=== PATIENT | female | born 1980 | race Two or more races ===

== ENCOUNTER 2021-07-16 10:52 | Emergency (ER) | payer SELFPAY ==
[~2021-07-16] VITALS: Ht 165.1 cm; Wt 72.0 kg
[2021-07-16 12:19] LABS: BASO % 0 % (0-3); EOS # 0.2 x10^3/uL (0.0-0.7); EOS % 3 % (0-3); HEMATOCRIT 43.9 % (36.0-47.0); HEMOGLOBIN 14.9 g/dL (12.0-15.5); LYMPH # 1.9 x10^3/uL (1.0-4.8); LYMPH % 24 % (24-48); MEAN CORPUSCULAR HEMOGLOBIN 29 pg (25-35); MEAN CORPUSCULAR HGB CONC 34 g/dL (31-37); MEAN CORPUSCULAR VOLUME 86 fL (79-100); MONO # 0.5 x10^3/uL (0.0-1.1); MONO % 7 % (0-9); NEUT # 5.3 x10^3/uL (1.8-7.7); NEUT % 66 % (31-73); PLATELET COUNT 239 x10^3/uL (140-400); RED BLOOD COUNT 5.12 x10^6/uL (3.50-5.40); RED CELL DISTRIBUTION WIDTH 13.5 % (11.5-14.5)
[2021-07-16 12:28] LABS: CALCIUM 9.1 mg/dL (8.5-10.1); CREATININE 0.6 mg/dL (0.6-1.0); GFR 105.8
[2021-07-16 12:34] LABS: ALBUMIN 3.6 g/dL (3.4-5.0); ALBUMIN/GLOBULIN RATIO 0.8 (1.0-1.7); CLARITY,URINE BLOODY; COLOR,URINE RED; TOTAL BILIRUBIN 0.4 mg/dL (0.2-1.0)
[2021-07-16 12:37] LABS: BACTERIA,URINE MANY /HPF (0-FEW); RBC,URINE TNTC /HPF (0-2); WBC,URINE 20-40 /HPF (0-4)
[2021-07-16 12:58] LABS: U PREG PATIENT POSITIVE (NEG)
--- NOTE | 2021-07-16 15:02 | RAD ---
OB ultrasound less than 14 weeks to include transabdominal and transvaginal imaging 07/16/2021 CLINICAL HISTORY: First trimester with vaginal bleeding and cramping. TECHNIQUE: Using the distended urinary bladder as a sonographic window, a real-time ultrasound examin ation of the pelvis was performed. Additionally in an attempt to better evaluate the uterus and adnex a, a transvaginal ultrasound study was performed. Multiple images were obtained. FINDINGS: A gestational sac is seen within the endometrial canal of the body the uterus. Within this gestational sac an embryonic pole is seen. The CRL of this embryonic pole measures 2.15 cm. This galina esponds to an estimated gestational age by ultrasound of 8 weeks 6 days plus or minus a standard garrett ation of 7 days. No embryonic cardiac activity is seen. This finding is consistent with embryonic dem ise. The uterus is otherwise within normal limits. The right ovary is not visualized due to overlying bowel gas. The left ovary is normal in size and ec hogenicity. It measures 1.9 x 1.9 x 1.6 cm in size. No adnexal mass is seen. No free fluid is noted. IMPRESSION: Findings consistent with embryonic demise. Electronically signed by: Ochoa Marquez MD (07/16/2021 2:59 PM) [id number]
--- NOTE | 2021-07-16 15:37 | PHYS DOC ---
Past Medical History Past Surgical History: No Surgical History Smoking Status: Never Smoker Alcohol Use: None General Adult EDM: Chief Complaint: VAGINAL BLEEDING HPI: HPI: Patient is a [age]-year-old female who presents to the emergency department complaining of intermittent vaginal bleeding with intermittent left lower pelvic cramping for the past 2 days. Patient reports she thinks she may be 10 weeks however states her last menstrual cycle was sometime in September 2020. Patient reports she had a positive test at home within the past 10 weeks and it was positive. Patient reports she has an appointment to see an SOCIAL WORKER at the [facility] however has not had any SOCIAL WORKER care to date. Patient states this is her seventh and she has 6 live children all vaginal births without complications. Patient denies chest pains, shortness of breath, syncopal episodes, denies a history of cardiac disease, denies history of high blood pressure, denies history of diabetes, denies nausea, vo miting, diarrhea. Patient reports she does not have any abdominal pain at this time. Patient reports she has intermittent pain when she is in a standing position or while she is working. Patient denies increased urinary frequency, urinary pressure, burning with urination, or other dysuria, patient denies vaginal discharge or STI concerns. Patient denies rashes or lesions to her vaginal area. Patient denies other physical complaints or physical concerns. Review of Systems: Review of Systems: 14 body systems of review of systems have been reviewed. See HPI for pertinent positives and negative responses, otherwise all other systems are negative, nonpertinent or noncontributory. Constitutional: Negative except as outlined in HPI above. Skin: Negative except as outlined in HPI above. Eyes: Negative except as outlined in HPI above. HENT: Negative except as outlined in HPI above. Respiratory: Negative except as outlined in HPI above. Cardiovascular: Negative except as outlined in HPI above. GI: Negative except as outlined in HPI above. : Negative except as outlined in HPI above. Musculoskeletal: Negative except as outlined in HPI above. Integument: Negative except as outlined in HPI above. Neurologic: Negative except as outlined in HPI above. Endocrine: Negative except as outlined in HPI above. Lymphatic: Negative except as outlined in HPI above. Psychiatric: Negative except as outlined in HPI above. Heart Score: C/O Chest Pain: No Risk Factors: Risk Factors: DM, Current or recent (<one month) smoker, HTN, HLP, family history of CAD, obesity. Risk Scores: Score 0 - 3: 2.5% MACE over next 6 weeks - Discharge Home Score 4 - 6: 20.3% MACE over next 6 weeks - Admit for Clinical Observation Score 7 - 10: 72.7% MACE over next 6 weeks - Early Invasive Strategies Allergies: Allergies: Allergies Coded Allergies Type Severity Reaction Last Updated Verified No Known Drug Allergies 07/16/21 No Physical Exam: PE: Constitutional: Well developed, well nourished, no acute distress, non-toxic appearance. 48-year-old female in no apparent distress. HENT: Normocephalic, atraumatic. Eyes: Conjunctiva normal, no discharge. Neck: Normal range of motion. Cardiovascular: Distal cap refill less than 2 seconds, no cyanosis appreciated. Lungs & Thorax: Patient is in no respiratory distress, no adventitious lung sounds appreciated. Abdomen: Bowel sounds normal, soft, no tenderness, no masses, no pulsatile masses. No bruising or skin discoloration of the abdomen. Skin: Warm, dry, no erythema, no rash. Back: No tenderness, no CVA tenderness. Extremities: No tenderness, no cyanosis, no clubbing, ROM intact, no edema. Neurologic: Alert and oriented X 3, normal motor function, normal sensory function, no focal deficits noted. Psychologic: Affect normal, judgement normal, mood normal. : Pelvic examination performed with female ED nurse at bedside for track patrol, external vaginal structures without lesions or rashes, no vaginal discharge externally, the cervix is clear not erythematous, no purulent appearing discharge present, no vaginal or cervical lesions or irritation visualized, there is dark red blood near the cervix, the cervical os is closed, no active bleeding from cervical os appreciated. No pain or discomfort during speculum exam. Current Patient Data: Labs: Laboratory Tests Test 07/16/21 11:58 White Blood Count 8.0 x10^3/uL Red Blood Count 5.12 x10^6/uL Hemoglobin 14.9 g/dL Hematocrit 43.9 % Mean Corpuscular Volume 86 fL Mean Corpuscular Hemoglobin 29 pg Mean Corpuscular Hemoglobin Concent 34 g/dL Red Cell Distribution Width 13.5 % Platelet Count 239 x10^3/uL Neutrophils (%) (Auto) 66 % Lymphocytes (%) (Auto) 24 % Monocytes (%) (Auto) 7 % Eosinophils (%) (Auto) 3 % Basophils (%) (Auto) 0 % Neutrophils # (Auto) 5.3 x10^3/uL Lymphocytes # (Auto) 1.9 x10^3/uL Monocytes # (Auto) 0.5 x10^3/uL Eosinophils # (Auto) 0.2 x10^3/uL Basophils # (Auto) 0.0 x10^3/uL Urine Collection Type Unknown Urine Color Red Urine Clarity Bloody Urine pH Urine Specific Deshler Urine Protein mg/dL Urine Glucose (UA) mg/dL Urine Ketones (Stick) mg/dL Urine Blood Urine Nitrite Urine Bilirubin Urine Urobilinogen Dipstick mg/dL Urine Leukocyte Esterase Urine RBC Tntc /HPF Urine WBC 20-40 /HPF Urine Squamous Epithelial Cells Few /LPF Urine Bacteria Many /HPF Urine Mucus Slight /LPF Urine Test Positive Maternal Serum HCG Beta Subunit 8872 mIU/mL Sodium Level 137 mmol/L Potassium Level 4.0 mmol/L Chloride Level 102 mmol/L Carbon Dioxide Level 24 mmol/L Anion Gap 11 Blood Urea Nitrogen 7 mg/dL Creatinine 0.6 mg/dL Estimated GFR (Cockcroft-Gault) 105.8 BUN/Creatinine Ratio 12 Glucose Level 112 mg/dL Calcium Level 9.1 mg/dL Total Bilirubin 0.4 mg/dL Aspartate Amino Transf (AST/SGOT) 15 U/L Alanine Aminotransferase (ALT/SGPT) 20 U/L Alkaline Phosphatase 73 U/L Total Protein 8.0 g/dL Albumin 3.6 g/dL Albumin/Globulin Ratio 0.8 Laboratory Tests Test 07/16/21 11:58 White Blood Count 8.0 x10^3/uL (4.0-11.0) Red Blood Count 5.12 x10^6/uL (3.50-5.40) Hemoglobin 14.9 g/dL (12.0-15.5) Hematocrit 43.9 % (36.0-47.0) Mean Corpuscular Volume 86 fL (79-100) Mean Corpuscular Hemoglobin 29 pg (25-35) Mean Corpuscular Hemoglobin Concent 34 g/dL (31-37) Red Cell Distribution Width 13.5 % (11.5-14.5) Platelet Count 239 x10^3/uL (140-400) Neutrophils (%) (Auto) 66 % (31-73) Lymphocytes (%) (Auto) 24 % (24-48) Monocytes (%) (Auto) 7 % (0-9) Eosinophils (%) (Auto) 3 % (0-3) Basophils (%) (Auto) 0 % (0-3) Neutrophils # (Auto) 5.3 x10^3/uL (1.8-7.7) Lymphocytes # (Auto) 1.9 x10^3/uL (1.0-4.8) Monocytes # (Auto) 0.5 x10^3/uL (0.0-1.1) Eosinophils # (Auto) 0.2 x10^3/uL (0.0-0.7) Basophils # (Auto) 0.0 x10^3/uL (0.0-0.2) Urine Collection Type Unknown Urine Color Red Urine Clarity Bloody Urine pH (<5.0-8.0) Urine Specific Deshler (1.000-1.030) Urine Protein mg/dL (NEG-TRACE) Urine Glucose (UA) mg/dL (NEG) Urine Ketones (Stick) mg/dL (NEG) Urine Blood (NEG) Urine Nitrite (NEG) Urine Bilirubin (NEG) Urine Urobilinogen Dipstick mg/dL (0.2 mg/dL) Urine Leukocyte Esterase (NEG) Urine RBC Tntc /HPF (0-2) Urine WBC 20-40 /HPF (0-4) Urine Squamous Epithelial Cells Few /LPF Urine Bacteria Many /HPF (0-FEW) Urine Mucus Slight /LPF Urine Test Positive (NEG) Sodium Level 137 mmol/L (136-145) Potassium Level 4.0 mmol/L (3.5-5.1) Chloride Level 102 mmol/L (98-107) Carbon Dioxide Level 24 mmol/L (21-32) Anion Gap 11 (6-14) Blood Urea Nitrogen 7 mg/dL (7-20) Creatinine 0.6 mg/dL (0.6-1.0) Estimated GFR (Cockcroft-Gault) 105.8 BUN/Creatinine Ratio 12 (6-20) Glucose Level 112 mg/dL (70-99) H Calcium Level 9.1 mg/dL (8.5-10.1) Total Bilirubin 0.4 mg/dL (0.2-1.0) Aspartate Amino Transferase (AST) 15 U/L (15-37) Alanine Aminotransferase (ALT) 20 U/L (14-59) Alkaline Phosphatase 73 U/L (46-116) Total Protein 8.0 g/dL (6.4-8.2) Albumin 3.6 g/dL (3.4-5.0) Albumin/Globulin Ratio 0.8 (1.0-1.7) L Laboratory Tests 07/16/21 11:58 Laboratory Tests 07/16/21 11:58 Vital Signs: Vital Signs Date Time Temp Pulse Resp B/P (MAP) Pulse Ox O2 Delivery O2 Flow Rate FiO2 07/16/21 11:55 98.1 88 16 119/61 (80) 99 Room Air 98.1 EKG: EKG: [] Radiology/Procedures: Radiology/Procedures: STATUS: REG ER ORD. PHYSICIAN: GUERRERO MONTEMAYOR APRN REASON: Vaginal bleeding during , unknown EDC PROCEDURE: OB <14 WKS W/TV OB ultrasound less than 14 weeks to include transabdominal and transvaginal imaging 07/16/2021 CLINICAL HISTORY: First trimester with vaginal bleeding and cramping. TECHNIQUE: Using the distended urinary bladder as a sonographic window, a real- time ultrasound examination of the pelvis was performed. Additionally in an attempt to better evaluate the uterus and adnexa, a transvaginal ultrasound study was performed. Multiple images were obtained. FINDINGS: A gestational sac is seen within the endometrial canal of the body the uterus. Within this gestational sac an embryonic pole is seen. The CRL of this embryonic pole measures 2.15 cm. This corresponds to an estimated gestational age by ultrasound of 8 weeks 6 days plus or minus a standard deviation of 7 days. No embryonic cardiac activity is seen. This finding is consistent with e mbryonic demise. The uterus is otherwise within normal limits. The right ovary is not visualized due to overlying bowel gas. The left ovary is normal in size and echogenicity. It measures 1.9 x 1.9 x 1.6 cm in size. No adnexal mass is seen. No free fluid is noted. IMPRESSION: Findings consistent with embryonic demise. Electronically signed by: Ochoa Marquez MD (07/16/2021 2:59 PM) [id number] Course & Med Decision Making: Course & Med Decision Making Pertinent Labs and Imaging studies reviewed. (See chart for details) 48-year-old female, vital signs reviewed, presents to the emergency room concerning vaginal bleeding during . Patient is 48 years old, will order UA with test to confirm , CBC, CMP. Patient urine is infected, positive test for urine . Will order OB less than 14 weeks with transvaginal ultrasound, chlamydia/GC testing for PCR on urine, ABO/Rh type, quantitative beta-hCG, wet prep, pelvic examination. OB ultrasound concerning for demise, the patient is O+, not a RhoGAM candidate, the patient denies concerns for STI, there is a low likelihood of GC/chlamydia however there is a PCR per urine test pending, will contact patient pending positive testing of GC/chlamydia. Discussed findings with patient, strict follow-up with SOCIAL WORKER care this week, recommended follow-up with SOCIAL WORKER clinic at [facility] however will also give SOCIAL WORKER specialist Dr. Guerrero Min information on discharge instructions, discussed with patient findings of infection in urine, bacterial vaginosis for wet prep results, will start on Keflex antibiotic regimen as well as Flagyl antibiotic regimen. Discussed medication side effects, return to ER precautions and concerns, patient gave verbal understanding of and is amenable to ED discharge planning. Discussed with the patient all findings and diagnostic testing as well as the need to follow-up with their primary care provider for further evaluation and treatment or return to the ED if any new or worsening symptoms. Strict return precautions were also discussed at length, the patient voiced understanding and agreement with the discharge planning. The patient was nontoxic in appearance, in no apparent distress, and hemodynamically stable at the time of disposition. Patient is Beninese-speaking, all communication, examination, explanation of ED work-up and discharge instructions were reviewed through house benefits consultant service. Yooli Disclaimer: Yooli Disclaimer: This electronic medical record was generated, in whole or in part, using a voice recognition dictation system. Departure Departure Impression: Primary Impression: demise Additional Impressions: Bacterial vaginosis Urinary tract infection Qualified Codes: N39.0 - Urinary tract infection, site not specified; R31.9 - Hematuria, unspecified Disposition: HOME / SELF CARE / HOMELESS Condition: GOOD Referrals: NO PCP (PCP) GUERRERO MIN MD Patient Instructions: Bacterial Vaginosis, Intrauterine Demise, Urinary Tract Infection Additional Instructions: You were seen today in the emergency department for vaginal bleeding and intermittent low pelvic cramping. As we discussed, your is no longer viable, I suspect this vaginal bleeding is the beginning of your impending miscarriage. I suspect you will pass tissue and have vaginal bleeding much like a heavy menstrual cycle. As we discussed, please follow-up with the SOCIAL WORKER this week, call Sunday for an appointment to be seen this week. Please follow- up with your SOCIAL WORKER at the [place] [facility], however you may choose to use any SOCIAL WORKER of your choice, I will recommend an SOCIAL WORKER that services at this hospital, Dr. Guerrero Min. Also, we discussed your bacterial vaginosis infection and your urinary tract infection, both these require antibiotics that you must brick picker today and start as directed. Please go to the [facility] that is located at the address below. Please return to the emergency department for sudden onset or severe abdominal cramping, severe abdominal bleeding, or other concerns. Thank you for visiting our Emergency Department. It was a pleasure taking care of you today in the emergency department and we appreciate you trusting us with your care. If any additional problems come up d on't hesitate to return to visit us. Please follow up with your primary care provider so they can plan additional care if needed and know about the problem that you had. If symptoms worsen come back to the Emergency Department. Any concerning symptoms that start such as chest pain, shortness of air, weakness or numbness on one side of the body, running high fevers or any other concerning symptoms return to the ER. Hoy la atendieron en el departamento de emergencias por sangrado vaginal y calambres plvicos bajos intermitentes. [place] comentamos, iraheta embarazo ya no es viable, sospecho que lobo sangrado vaginal es el comienzo de iraheta inminente aborto espontneo. Sospecho que pasar tejido y tendr sangrado vaginal muy parecido a un ciclo menstrual abundante. [place] comentamos, ra un seguimiento con el obstetra / gineclogo esta semana, llame el lunes para programar yessenia nando esta semana. Ra un seguimiento con iraheta obstetra / gineclogo en la clnica de obstetricia de [facility]; sin embargo, puede optar por utilizar cualquier obstetra / gineclogo de iraheta eleccin, recomendar un obstetra / gineclogo que atienda en lobo hospital, el Dr. Guerrero Min. Adems, discutimos iraheta infeccin por vaginosis bacteriana y iraheta infeccin del tracto urinario, ambas requieren antibiticos que debe recoger hoy y comenzar segn las indicaciones. Dirjase a la farmacia de [facility] que se encuentra en la siguiente direccin. Regrese al departamento de emergencias si tiene clicos abdominales severos o repentinos, sangrado abdominal intenso u otras inquietudes. [place] por visitar nuestro Departamento de Emergencias. Fue un placer atenderlo hoy en el departamento de emergencias y le agradecemos que nos haya confiado iraheta atencin. Si surge algn problema adicional, no dude en volver a visitarnos. Ra un seguimiento con iraheta proveedor de atencin primaria para que puedan planificar la atencin adicional si es necesario y conocer el problema que tuvo. Si los sntomas empeoran, regrese al Departamento de Emergencias. Cualquier sntoma preocupante que comience, leif dolor en el pecho, falta de aire, debilidad o entumecimiento en un lado del cuerpo, fiebre daisy o cualquier otro sntoma preocupante, regresa a la keiry de emergencias. Scripts Metronidazole (METRONIDAZOLE) 500 Mg Tablet 1 TAB PO BID for Bacterial infection for 7 Days, #14 TAB 0 Refills Prov: GUERRERO MONTEMAYOR MANAGER UNDERWRITING 07/16/21 Cephalexin (CEPHALEXIN) 500 Mg Tablet 1 TAB PO TID for UTI for 7 Days, #21 TAB Prov: GUERRERO MONTEMAYOR APRN 07/16/21 GUERRERO MONTEMAYOR APRN Jul 16, 2021 15:37
[2021-07-16 18:40] VITALS: BP 127/75
[2021-07-16] MEDS ORDERED: CEPH500T PO (19:32)
[2021-07-16] MEDS ORDERED: METR-34 PO (19:32)
== END 2021-07-16 19:50 | disposition home or self-care (01) ==
LOC: EDBD → MERGE 10:52 → ER 10:52
DX: O36.4XX0 Maternal care for intrauterine death, not applicable or unspecified (principal); Z3A.10 10 weeks gestation of pregnancy; N76.0 Acute vaginitis; B96.89 Other specified bacterial agents as the cause of diseases classified elsewhere; N39.0 Urinary tract infection, site not specified
CPT/HCPCS: 36415; 76801; 76817; 80053; 81001; 81025; 84702; 85025; 86900; 86901; 87086; 87491; 87591; 99285; Q0111